=== PATIENT | male | born 1965 | race Caucasian/White ===

== ENCOUNTER 2016-10-15 23:10 | Inpatient (IN) | payer MEDICARE ==
--- NOTE | ~2016-10-15 | PA ---
Unit #: [id number] #: [id number] Patient: SEYMOUR SMITH [id number] [facility] [address] [place] [address] [id number] MR#: [id number] NAME: SEYMOUR SMITH ROOM: [facility] Age: 50 Sex: M Admission Date: 10/15/2016 : 1965 Date of Assessment: Attending Physician: Rocky Christensen M.D. Admitting Physician: Rocky Christensen M.D. Primary Care Physician: Generic Doctor Not In System PSYCHIATRIC ASSESSMENT INFORMANTS The patient reliability, fair informant and chart reliability, good. CHIEF COMPLAINT Opioid abuse. HISTORY OF PRESENT ILLNESS Mr. Seymour Smith is a 50-year-old male, seen on with the above-mentioned complaint. The patient presented with increase in depression and anxiety and reported that he has been using heroin in the past 2 years and reported using a gram or more of IV heroin. The patient reported drinking half a pint or more of bourbon daily. The patient reports that he smokes or snorts 1 g of meth daily. The patient reported that he had work-related injury and broke his neck. The patient reported unable to get his medication, so he started using heroin. The patient denied any suicidal or homicidal ideation. The patient reported tobacco use, age of onset 39; alcohol, age of onset 19; opioid, age of onset 48; and amphetamine, age of onset 50. The patient reported legal issues and lost home due to substance abuse. The patient reported history of blackouts. No history of any HIV or hepatitis. History of withdrawal symptom and IV drug use. Reported currently having symptoms such as abdominal cramping, muscle cramping, diarrhea, irritability, nervousness, and restlessness. Needing inpatient admission at this time for psychiatric stabilization. PAST PSYCHIATRIC HISTORY Remarkable for history of outpatient followup. No history of any inpatient treatment or suicide attempt. FAMILY HISTORY AND SOCIAL HISTORY Family history is unknown for any history of any psychiatric illness. No known history of any abuse. MEDICAL HISTORY Remarkable for history of heart valve replacement and broken neck. MEDICATION HISTORY None. ALLERGIES No known drug allergies. SUBSTANCE ABUSE HISTORY Unit #: [id number] #: [id number] Patient: SEYMOUR SMITH Please see above. REVIEW OF SYSTEMS HEENT: Eyes, clear. Ears, nose, mouth, and throat; clear. CARDIOVASCULAR: Unremarkable. RESPIRATORY: Unremarkable. GI: Unremarkable. : Unremarkable. SKIN: Unremarkable. LYMPH NODE: Unremarkable. NEUROLOGIC: Unremarkable. ENDOCRINE: Unremarkable. HEMATOLOGIC: Unremarkable. ALLERGIC/IMMUNOLOGIC: Unremarkable. MUSCULOSKELETAL: Muscle strength and tone, no atrophy or abnormal movement. Gait normal. MENTAL STATUS EXAMINATION CONSTITUTIONAL: Measurement of vital signs; temperature 98.7, heart rate 99, respiratory rate 18, blood pressure 125/92, height 5 feet 7 inches, and weight 129 pounds. GENERAL APPEARANCE: The patient dressed casually. The patient did not show any facial deformity. MUSCULOSKELETAL: Please see above. PSYCHIATRIC EXAMINATION Description of speech; regular rate, normal volume, normal articulation, coherent, and spontaneous. Description of thought process, goal directed. Description of association, intact. Description of abnormal psychotic thinking; the patient denied any hallucination or delusions, but mood lability and substance abuse. Description of the patient's judgment; concerning everyday activity, poor. Social situation, poor. Concerning psychiatric condition, poor. The patient denied any suicidal or homicidal ideation or psychotic symptom. Complete mental status examination; oriented in time, place, and person. Recent and remote memory, fair. Attention span and concentration, fair. Language, able to name object and repeat phrases. Fund of knowledge, aware of current event and passive vocabulary intact. Mood and affect, sad and dysphoric. Insight and judgment, fair to poor. ASSETS AND LIABILITIES Assets, the patient is articulate and able to take care of his ADL. Liability, history of substance abuse and depression. ADMITTING DIAGNOSES Psychiatric: Opioid use disorder, moderate, F11.20; amphetamine use disorder, moderate, F15.20; and mood disorder, not otherwise specified, F32.9. Secondary diagnosis: Deferred. Medical diagnosis: Heart valve replacement and broken neck. Stressors: Psychosocial stressors. PSYCHIATRIC PLAN AND TREATMENT GOAL AND DISCHARGE PLAN 1. Advised to admit the patient on the inpatient unit. Provide safe, Unit #: [id number] #: [id number] Patient: SEYMOUR SMITH supportive, and structured environment. 2. Ordered labs; CBC, CMP, UA, and UDS. 3. Start with detox protocol and detox monitoring. If needed, consider further adjustment of medication. The patient to attend all the programing, group therapy, individual therapy, and family therapy if possible. The patient to attend all the group on the inpatient unit. TREATMENT GOAL To attain euthymic mood, gain insight into his problem, and learn coping skills. DISCHARGE PLAN Plan to stabilize the patient and consider followup in outpatient program. ESTIMATED LENGTH OF STAY 5 days. Dictated by... Marisol Valles/tran TD: 10/16/2016 18:04 JOB #: [id number] PSYCHIATRIC ASSESSMENT X oRcky Christensen MD X PSYCHIATRIC ASSESSMENT
--- NOTE | ~2016-10-15 | HP ---
Unit #: [id number] #: [id number] Patient: SEYMOUR SMITH [id number] [facility] [address] [place] [address] [id number] I MR#: [id number] NAME: SEYMOUR SMITH ROOM: [facility] Age: 50 Sex: M Admission Date: 10/15/2016 : 1965 Attending Physician: Rocky Christensen M.D. Admitting Physician: Rocky Christensen M.D. Primary Care Physician: Generic Doctor Not In System HISTORY AND PHYSICAL HISTORY OF PRESENT ILLNESS The patient is a 50-year-old male admitted to [facility] on 10/15/2016 to detox from heroin. PAST MEDICAL HISTORY 1. Drug abuse. 2. Nicotine dependence. PAST SURGICAL HISTORY 1. Heart valve replacement. 2. Neck surgery. SOCIAL HISTORY The patient is disabled. He lives with his . He smokes one pack of cigarettes daily. He drinks a half pint of bourbon per day. He uses 1 g of heroin and 0.5 g of methamphetamine per day. FAMILY HISTORY Noncontributory. ALLERGIES Ephedrine. CURRENT MEDICATIONS The patient is not on any home medications. REVIEW OF SYSTEMS CONSTITUTIONAL: No fever or chills. HEENT: Denies any sore throat, ear pain or runny nose. CARDIOVASCULAR: Denies chest pain, irregular heart rhythm or palpitations. CHEST: Denies shortness of breath or cough. No hemoptysis. GASTROINTESTINAL: Denies nausea, vomiting, diarrhea or chronic constipation. ENDOCRINE: Denies history of increased thirst or urination. No recent significant weight loss or gain. GENITOURINARY: Denies dysuria, frequency, or hematuria. SKIN: Denies any rashes. HEMATOLOGIC: Denies history of increased bleeding or bruising. MUSCULOSKELETAL: Denies any hot, swollen joints. No generalized muscle pain. NEUROLOGIC: Denies problems with vision or speech. No frequent, severe headaches. No numbness, tingling or weakness in any extremities. Denies loss of bladder or bowel control. Unit #: [id number] #: [id number] Patient: SEYMOUR SMITH PHYSICAL EXAMINATION GENERAL: The patient is awake, alert and oriented, in no acute distress. VITAL SIGNS: Temperature 98.3, heart rate 100, respiratory rate 18, blood pressure 136/95. Height 5'7". WEIGHT: 129 pounds. SKIN: Warm and dry without rash or lesion. HEENT: Normocephalic. TMs not viewed. Oral and nasal passages clear. Conjunctivae clear. PERRLA. EOMs intact. NECK: Supple without lymphadenopathy or thyromegaly. HEART: Regular rate and rhythm without murmur. LUNGS: Clear. ABDOMEN: Soft, nontender. : Not done. EXTREMITIES: No evidence of cyanosis, clubbing or edema. Moves all without focal deficit. NEUROLOGICAL: Grossly within normal limits. Cranial Nerves: II: Visual willis are intact. III, IV AND : Extraocular movements are intact. Pupils are equal, round and reactive to light. V: Facial sensation is grossly normal. VII: Facial movements and expression are normal. VIII: Auditory acuity grossly intact. IX, X: Uvula is midline. Phonation is normal. XI: Patient shrugs shoulders and turns head normally. XII: Tongue protrudes in the midline. Sensory and Motor Function: Sensory and motor sensation is grossly normal. Motor: moves all extremities well. ASSESSMENT 1. Psychiatric admission. 2. Polysubstance abuse. 3. Nicotine dependence. RECOMMENDATIONS 1. Psychiatric: Per psychiatrist. 2. Medical: No contraindication to participating in facility activities. MEDICAL PROGNOSIS Good. MEDICAL CONDITION Stable. Dictated by... Evy Velasco/samantha TD: 10/17/2016 09:55 JOB #: [id number] Unit #: [id number] #: [id number] Patient: SEYMOUR SMITH HISTORY AND PHYSICAL X SANDEEP VERDUGO APRN HISTORY AND PHYSICAL
--- NOTE | ~2016-10-15 | PN ---
Unit #: [id number] #: [id number] Patient: SEYMOUR SMITH [id number] [facility] [address] [place] [address] [id number] I MR#: [id number] NAME: SEYMOUR SMITH ROOM: [facility] Age: 50 Sex: M Admission Date: 10/15/2016 : 1965 Attending Physician: Rocky Christensen M.D. Admitting Physician: Rocky Christensen M.D. Primary Care Physician: Generic Doctor Not In System [facility] PROGRESS NOTES DATE 10/17/2016 DISCUSSION Seymour Smith is a 50-year-old male. The patient interviewed, chart reviewed. Obtained information from nursing staff. The patient still having shaking, anxiety, nervousness. The patient compliant and cooperative. The patient reports withdrawing from opioids. The patient seclusive, isolative. Complete review of systems unremarkable. MENTAL STATUS EXAMINATION General appearance, the patient dressed casually. Attention span and concentration fair. Oriented to place and person. Mood and affect sad, dysphoric. Speech monotone. Thought process concrete. Association the patient denied any thoughts of harming self or others or any psychotic symptoms. Recent and remote memory poor. Insight and judgement poor. DIAGNOSES Opioid use disorder severe ASSESSMENT/PLAN Advise to continue with current medication and therapeutic protocol. We will monitor response to medication and make further adjustment of medication. Dictated by... Marisol Valles/saleem TD: 10/20/2016 03:33 JOB #: [id number] Unit #: [id number] #: [id number] Patient: SEYMOUR SMITH PROGRESS NOTES X Rocky Christensen MD PROGRESS NOTE
--- NOTE | ~2016-10-15 | DS ---
Unit #: [id number] #: [id number] Patient: SEYMOUR SMITH [id number] [facility] [address] [place] [address] [id number] I MR#: [id number] NAME: SEYMOUR SMITH ROOM: [facility] Age: 50 Sex: M Admission Date: 10/15/2016 : 1965 Discharge Date: 10/19/2016 Attending Physician: Rocky Christensen M.D. Primary Care Physician: Generic Doctor Not In System DISCHARGE SUMMARY REASON FOR ADMISSION Opioid use, depression, anxiety. DIAGNOSTIC STUDIES LABORATORY RESULTS: Remarkable for urine drug screen positive for amphetamine and opioid. HOSPITAL COURSE The patient was admitted to inpatient unit on 10/15/2016 and discharged on 10/19/2016. The patient was treated on the inpatient unit with expressive therapy, medication management, psychotherapy, structured milieu, and chemical dependency group. The patient responded well with the above modalities of treatment. Subsequently, the patient was discharged with a plan to follow up in outpatient clinic. DISCHARGE MEDICATIONS None. DISCHARGE DIAGNOSES Psychiatric: 1. Opioid use disorder, moderate, F11.20. 2. Amphetamine use disorder, moderate, F15.20. 3. Mood disorder, not otherwise specified, F32.9. Secondary diagnosis: Deferred. Medical diagnoses: Heart valve replacement and history of broken neck in the past. Stressors: Psychosocial stressors. DISCHARGE INSTRUCTIONS The patient to follow up in outpatient clinic as per social science professor. CONDITION ON DISCHARGE The patient was pleasant and cooperative. Denied any psychotic symptom or any suicidal ideation. PROGNOSIS Guarded. DIET AND ACTIVITY As tolerated. Unit #: [id number] #: [id number] Patient: SEYMOUR SMITH Dictated by... Marisol Valles/tran TD: 10/20/2016 01:36 JOB #: [id number] DISCHARGE SUMMARY X Rocky Christensen MD X DISCHARGE SUMMARY
--- NOTE | ~2016-10-15 | PN ---
Unit #: [id number] #: [id number] Patient: SEYMOUR SMITH [id number] [facility] [address] [place] [address] [id number] MR#: [id number] NAME: SEYMOUR SMITH ROOM: [facility] Age: 50 Sex: M Admission Date: 10/15/2016 : 1965 Attending Physician: Rocky Christensen M.D. Admitting Physician: Rocky Christensen M.D. Primary Care Physician: Generic Doctor Not In System [facility] PROGRESS NOTES DATE OF SERVICE: 10/18/2016 DISCUSSION Seymour Smith is a 50-year-old male, seen on 10/18/2016. The patient interviewed, chart reviewed, and obtained information from nursing staff. The patient was withdrawn, isolative, flat affect, guarded. The patient reported that he is feeling better, but still having withdrawal symptoms. The patient was able to participate in some of the group. No side effects from medication. Complete review of systems unremarkable. MENTAL STATUS EXAMINATION General appearance, the patient dressed casually. Attention span and concentration, fair. Oriented in time, place, and person. Mood and affect were sad and dysphoric. Speech, monotone. Thought process, concrete. The patient denied any thoughts of harming self or others or any psychotic symptom. Recent and remote memory, poor. Insight and judgment, poor. DIAGNOSES 1. Opioid use disorder, severe. 2. Amphetamine use disorder, severe. ASSESSMENT AND PLAN Advised to continue with current medication and therapeutic protocol. We will monitor response to medication and make further adjustment of medication if needed. Dictated by... Marisol Valles/tran TD: 10/18/2016 20:46 JOB #: [id number] Unit #: [id number] #: [id number] Patient: SEYMOUR SMITH PROGRESS NOTES X Rocky Christensen MD PROGRESS NOTE
[2016-10-17 09:34] LABS: BASOPHIL# 0.1 X10e3 (0-0.3); BASOPHIL% 0.7 % (0-2.5); EOSINOPHIL# 0.3 X10e3 (0-0.7); EOSINOPHIL% 3.1 % (0.0-7.0); HEMATOCRIT 47.7 % (38.0-50.0); HEMOGLOBIN 15.8 gm/dL (13.0-16.0); LYMPHOCYTE# 2.2 X10e3 (1.0-3.5); LYMPHOCYTE% 26.8 % (17.0-45.0); MEAN CELL VOLUME 87.4 FL (83-96); MEAN CORPUSCULAR HGB CONC 33.2 g/dL (30-36); MEAN PLATELET VOLUME 7.8 FL (6.5-11.5); MONOCYTE# 0.3 X10e3 (0-1.0); MONOCYTE% 4.3 % (3.0-12.0); NEUTROPHIL# 5.3 X10e3 (1.5-7.1); NEUTROPHIL% 65.1 % (40-75); PLATELET COUNT 337 X10e3 (140-420); RED BLOOD COUNT 5.46 X10e (3.90-5.60); RED CELL DISTRIBUTION WIDTH 14.3 % (11.0-15.5); WHITE BLOOD COUNT 8.1 X10e3 (4.0-10.5)
[2016-10-17 09:43] LABS: DIFF IND NO
[2016-10-17 10:02] LABS: THYROID STIMULATING HORMONE 0.22 uIU/ml (0.34-5.60)
[2016-10-17 10:08] LABS: FREE THYROXIN (T4) 0.79 ng/dL (0.58-1.64)
[2016-10-17 10:16] LABS: ALBUMIN SERUM 3.3 g/dL (3.5-5.0); ALKALINE PHOSPHATASE 95 U/L (32-92); ALT (SGPT) 18 U/L (10-40); AST (SGOT) 21 U/L (10-42); BILIRUBIN,TOTAL 0.5 mg/dL (0.2-2.0); BLOOD UREA NITROGEN 13 mg/dL (9-23); CALCIUM SERUM 9.7 mg/dL (8.4-10.2); CARBON DIOXIDE 30 mmol/L (22-31); CHLORIDE 101 mmol/L (100-111); GLOM FILT RATE Estimated ABOVE60 mL/min (>60); GLUCOSE FASTING 184 mg/dL (70-110); POTASSIUM 4.8 mmol/L (3.5-5.1); PROTEIN TOTAL SERUM 6.9 g/dL (6.0-8.3); SODIUM 140 mmol/L (135-145)
[2016-10-17 12:46] LABS: URINE APPEARANCE CLEAR; URINE BILIRUBIN NEG (NEG); URINE BLOOD NEG (NEG); URINE COLOR YELLOW; URINE GLUCOSE NEG (NEG); URINE KETONE NEG (NEG); URINE LEUKOCYTE ESTERASE NEG (NEG); URINE NITRATE NEG (NEG); URINE PROTEIN NEG (NEG); URINE SPECIFIC GRAVITY 1.016 (1.003-1.035); URINE UROBILINOGEN 0.2 MG/DL (NEG)
[2016-10-17 13:32] LABS: AMPHETAMINE POS (NEG); BARBITURATES NEG (NEG); BENZODIAZEPINES NEG (NEG); COCAINE NEG (NEG); MARIJUANA NEG (NEG); OPIATES POS (NEG); TRICYCLIC ANTIDEPRESSANTS NEG (NEG); U METHADONE NEG (NEG)
== END 2016-10-19 11:57 | DRG 897 ==
LOC: P2S 23:10
PROVIDERS: Psychiatry & Neurology Psychiatry
PROC: HZ2ZZZZ Detoxification Services for Substance Abuse Treatment (ICD-10-PCS; principal; 2016-10-15)
DX: F11.20 Opioid dependence, uncomplicated (principal); F15.20 Other stimulant dependence, uncomplicated; F39 Unspecified mood [affective] disorder; F32.9 Major depressive disorder, single episode, unspecified; Z95.2 Presence of prosthetic heart valve; F17.200 Nicotine dependence, unspecified, uncomplicated
CPT/HCPCS: 80053; 80307; 81003; 84439; 84443; 85025; 86592